=== PATIENT | female | born 1935 | race Caucasian/White ===

== ENCOUNTER → 2017-05-17 | Outpatient (CLI) | payer MEDICARE, BC ==
[~2017-05-17] MED LIST: ALTACE PO; ANTIVERT PO; ARICEPT5 M1 PO; ASPIRIN PO; ATENOLOL25 MG PO; ATHENOL325 MG PO; AUGMENTIN PO; B-121000 MC1 PO; BP MED; COL-RITE50 MG PO; COLACE PO; CYANOCOBALAMI100 MCG PO; FLEXERIL PO; KRISTALOSE10 GM PO; LIPITOR PO; LIPITOR40 MG PO; LORTAB 5/500 TA1 TA1 PO; LOVENOX40 MG/0.4 INJ; MICARDIS PO; MIRTAZAPINE7.5 MG PO; NORCO 10/3251 TAB PO; NORCO 5/325 TAB1 TAB PO; NORVASC PO; PROTONIX PO; PROZAC PO; SYNTHROID0.05 MG PO; TELMISARTAN PO; TELMISARTAN80 MG PO; TYLENOL325 M1 PO; ZOFRAN8 MG PO; ZOFRANODT PO
--- NOTE | ~2017-05-17 | US77 ---
[facility] A Service of [facility] & [facility] RADIOLOGY TEXT RESULTS PATIENT: EDMUND ASHBY LOCATION: [facility] : 33 UNIT #: [id number] AGE: [address]: No Garvey MD SEX: F ORDER DR: [id number] [facility] [address] [place], [place] [address] [id number] MR#: [id number] Acc #: [id number] NAME: EDMUND ASHBY : 1935 SEX: F STUDY DATE/TIME: 05/17/2017 15:45 UNIT: [facility] ROOM: STUDY DESCRIPTION: US Kidney Bilateral Complete Attending Physician: Romario Garvey M.D. Referring Physician: Romario Garvey M.D. Ordering Physician: Eduardo Hernandez M.D. Primary Care Physician: Devon Gardner M.D. MEDICAL IMAGING REPORT This report is preliminary unless electronic signature is present EXAM Renal ultrasound bilateral. 05/17/2017 HISTORY Chronic kidney disease stage 3. FINDINGS The right kidney measures 9 cm while the left kidney measures 8.8 cm in longitudinal dimensions. There is no evidence of hydronephrosis or nephrolithiasis. No cystic or solid mass lesions were seen on either kidney. There is normal renal cortical echogenicity. Images of the bladder are normal. IMPRESSION 1. Negative renal ultrasound. 2. Images of the bladder are normal. Dictated by... Sidney Saleem M.D. THIS IS AN ELECTRONICALLY VERIFIED REPORT Sidney Saleem M.D. at 05/19/2017 7:19 AM GAYATHRI/gopi TD: 05/18/2017 22:50 JOB #: [id number] MEDICAL IMAGING REPORT Page 1 of 1 COPY
== END | disposition home or self-care (01) ==
LOC: CWCC 05-08 13:30
DX: N18.9 Chronic kidney disease, unspecified (principal)
CPT/HCPCS: 76770